=== PATIENT | female | born 1980 | race Caucasian/White ===

== ENCOUNTER 2021-08-18 15:59 | Outpatient (CLI) | payer BC, SELFPAY ==
--- OUTSIDE RECORDS SUMMARY | 2021-08-04 09:04 | XMS_ITS | Continuity of Care Document ---
:1980 Author Allergies, Adverse Reactions, Alerts No known allergies Social History Smoking Status Status Start Date End Date Date of Observat ion Never smoked tobacco March 282021 (finding) 5:41pm Additional Data Assigned Sex Female Problems Active Problems Medical Problem Onset Date Status f/u miscarriage June 11, 2013 Active Normal delivery Resolved care following vaginal Active delivery History of migraine headaches Active History of depression Active Hypercalcemia Active Sister with familial hypocalciuric Activ e hypercalcemia Abnormal uterine bleeding (AUB) Active PMDD (premenstrual dysphoric Active disorder) Skin change Active Medications Medication Status Dose Units Route Directions Qty Days Start End Ins tructions Date Date Acetaminophen Disconti 1-2 TAB PO Every 4 February r /Codeine nued Hours as , y Phosphate needed 2013, (Acetaminophe 2:40pm 2013 n/Codeine #3) 9:56am 30 Mg/300 Mg TAB Amoxicillin Disconti 875 MG PO Twice Daily Julyus t nued For 10 Days 2018 5:43pm 12:56p m Amoxicillin & Disconti 1 TABLET PO Twice Daily 30 August Ma y Pot nued For 10 Days , , Clavulanate 2017 2018 (Augmentin) 12:31pm 8:33am 875 Mg/125 Mg TAB Desonide Disconti 1 EDUARDO TOP Twice A Day 25 September nued 2019 12:56p m Dicloxacillin Disconti 500 MG PO Four Times April Sodium nued Daily 2016 10:40am 8:37am Dicloxacillin Disconti 500 MG PO Four Times April Sodium nued Daily 2015 4:58pm 10:18a m Dicloxacillin Disconti 500 MG PO Four Times 08 August Xander h Sodium nued Daily 2014 5:14pm 4:58pm Diphtheria/Te Disconti 0.5 ML IM Once 1 Decembe Decemb tanus/Acell nued r 30th, er Pertussis 2015, (Adacel) 0.5 9:39am 2015 Ml INJ 9:53am Diphtheria/Te Disconti 0.5 ML IM Once April tanus/Acell nued 6th, 6th, Pertussis 2014 2014 (Adacel) 0.5 11:07am 11:27a Ml INJ m Docusate Disconti 100 MG PO Bedtime April Sodium nued y , , (Docqlace) 2016 2016 100 Mg CAP 7:09am 8:43am Ibuprofen Disconti 600 MG PO Every 6 60 uaapril nued Hours as y , , needed for 2016 2016 Pain 7:09am 8:43am Ibuprofen Disconti 600 MG PO Every 6 May nued Hours as 11, , needed for 2014 2015 Pain 8:26am 10:18a m Influenza Disconti 0.5 ML IM Once 1 [facility] [place] Virus Vaccine nued r 7th, er Split 2019 08, (Fluzone 4:18pm 2020 Quadrivalent 4:18pm 2019 0.5 Ml) 1 Inj INJ Influenza Disconti 0.5 ML IM Once 1 r ua Virus Vaccine nued y 14th, ry Split 2019, (Fluzone 11:47am 2019 Quadrivalent 11:49a 2018 0.5 Ml) m 1 Inj INJ Influenza Disconti 0.5 ML IM Once Novemberobe Virus Vaccine nued 5th, r 5th, Split 2015 2015 (Fluzone 8:54am 9:05am Quadrivalent (3 Yrs And Older)2015- ) 1 Inj INJ Influenza Disconti 0.5 ML IM Once 11 November Octobe Virus Vaccine nued 8th, r 8th, Split 2013 2013 (Fluzone 9:32am 9:35am Multidose Vial [id number]) 1 Inj INJ Influenza Disconti 0.5 ML IM [facility] 13th, er Split 2012, (Fluzone (3 3:40pm 2012 Years And 4:08pm Older) [id number]) 1 Ml INJ Misoprostol Disconti 600 MCG PV Once February If no bleeding or passage of tissue after 48 hours, repeat (Cytotec) 200 nued , y dosage . Mcg TAB 2013, 2:40pm 2013 9:56am Nitrofurantoi Disconti 100 MG PO Twice A Day 14 uar F ebrua n nued y 1st, ry Monoh/Nitrofu 2016 13, r Macro 12:31pm 2016 (Macrobid) 2:55am 100 Mg CAP Vit Disconti 1 TAB PO Daily July W/ Ferrous nued , Fumara 2017 ( 8:37am Vitamins Plus) TAB Progesterone Disconti 200 MG PV Daily 14 Decemb (Prometrium) nued er , er 200 Mg CAP 2013 04, 9:12am 2013 9:02am Progesterone Disconti 200 MG PV Three Times September tem (Prometrium) nued A Day , emerson 200 Mg CAP 2013 06, 10:40am 2013 9:12am Immunizations Immunization Event Date Not Given Dose Roentgenology Teacher Lot Vac cine Reason Number Number Informatio n Statement (VIS) Deta il Influenza January 11 [employer] [id number] 2012 Influenza November 18, 2 SANOFI [id number] 2013 Influenza November 15, 3 [employer] [id number] 2015 Influenza March 17 SANOFI [id number] 2019 Influenza January 15 SANOFI [id number] 2019 Tdap April 16, SANOFI [id number] (adolescent/adul 2014 t) Tdap January 12 SANOFI [id number] (adolescent/adul 2015 t) Advance Directives Advance Directive Response Recorded Date/Time Has patient completed a No March 28, 2 022 5:41pm Health Care Directive? Insurance Providers Guarantor Bo Garza Address [address] [facility] [address] Contact Info. Home Phone: Payer Policy Id Coverage Id Subscriber's Subscriber Effective Expi ration Name Id Date Date [place] [id number] Bo Garza May 12, Healthcare M 2019 Choice Plan of Treatment Future Tests Future scheduled test information is unavailable Pending Tests Pending diagnostic test information is unavailable Future Visits Future appointment information is unavailable Referrals to Other Providers Reason for Referral Start Provider Provider Contact Provider Address Referral Date Information RAO MCCALLUM Work Phone: EMMIE TRAORE MD [address] [facility] [phone] Future Procedures Future procedure information is unavailable Future Medications Future medication information is unavailable Patient Instructions OB /Breast Feeding
--- NOTE | 2021-08-18 16:00 | CRLHL7_ITS ---
For Patients: As a result of the Century Cures Act, medical imaging exams and procedure reports are released immediately into your electronic medical record. You may view this report before your referring provider. If you have questions, please contact your health care provider. INDICATION: Follow-up right ovarian cyst COMPARISON: 03/20/2021 TECHNIQUE: 2D santiago scale and color Doppler images were acquired of the pelvis using a transabdominal and transvaginal approach. FINDINGS: Sonographic images demonstrate a normal size and smooth outer contour of the uterus. Uterus measures 6.8 cm in length by 4.3 cm in AP diameter by 4.8 cm in transverse dimension. The myometrium has a normal uniform echotexture. The endometrial lining appears similar and measures 8 mm in composite thickness. Focal nodular area associated with the endometrium, as before, measuring 10 x 5 x 10 millimeters. The right ovary measures 3.9 x 2.0 x 2.0 cm in size and the left ovary measures 3.3 x 1.8 x 1.9 cm. The ovaries demonstrate normal arterial and venous blood flow on color Doppler analysis. There are no suspicious fluid collections within the cul-de-sac. IMPRESSION: Interval resolution hemorrhagic right ovarian cyst since the prior study and resolution of pelvic free fluid. Similar appearance of the endometrium with possible polyp measuring 1 cm. Dictated by Luis Alas MD @ 08/21/2021 8:08:03 AM (Electronically Signed)
== END 2021-08-18 16:00 | disposition home or self-care (01) ==
LOC: US 16:02
PROVIDERS: PCP Family Medicine; Visit Provider Registered Nurse
DX: N83.201 Unspecified ovarian cyst, right side (principal)
CPT/HCPCS: 76830

== ENCOUNTER 2024-03-18 09:38 | Outpatient (CLI) | payer BC, SELFPAY | END 2024-03-18 09:39 | disposition home or self-care (01) | PROVIDERS: PCP Family Medicine; Visit Provider Family Medicine | DX: R53.83 Other fatigue (principal); E83.52 Hypercalcemia; Z13.6 Encounter for screening for cardiovascular disorders | CPT/HCPCS: 80053; 80061; 84443 ==

== ENCOUNTER 2024-06-22 15:14 | Outpatient (CLI) | payer BC, SELFPAY ==
--- NOTE | 2024-06-22 15:20 | CRLHL7_ITS ---
For Patients: As a result of the Cures Act, medical imaging exams and procedure reports are released immediately into your electronic medical record. You may view this report before your referring provider. If you have questions, please contact your health care provider. INDICATION: BILATERAL SCREENING MAMMOGRAM, ASYMPTOMATIC 43 Y/O FEMALE COMPARISON: 03/20/2021 TECHNIQUE: Digital mammogram in CC and MLO projections including computer-aided detection (CAD) and tomosynthesis. BREAST COMPOSITION: The breasts are heterogeneously dense, which may obscure small masses. FINDINGS: No suspicious findings. ASSESSMENT: BI-RADS 1 Negative RECOMMENDATION: Annual screening mammogram. A lay language report of this examination will be provided to the patient. Dictated by: Luis Alas MD @ 06/23/2024 09:44:59 (Electronically Signed)
== END 2024-06-22 15:15 | disposition home or self-care (01) ==
LOC: MAMMO 15:15
PROVIDERS: PCP Family Medicine; Visit Provider Family Medicine
DX: Z12.31 Encounter for screening mammogram for malignant neoplasm of breast (principal); R92.333 Mammographic heterogeneous density, bilateral breasts
CPT/HCPCS: 77063; 77067

== ENCOUNTER 2024-07-16 07:42 | Outpatient (CLI) | payer BC, SELFPAY | END 2024-07-16 07:43 | disposition home or self-care (01) | PROVIDERS: PCP Family Medicine; Visit Provider Family Medicine | DX: E83.52 Hypercalcemia (principal); R53.83 Other fatigue; Z13.6 Encounter for screening for cardiovascular disorders | CPT/HCPCS: 80053; 82306; 83970 ==